=== PATIENT | male | born 1970 | race Caucasian/White ===

== ENCOUNTER 2017-03-15 17:44 | Emergency (ER) | payer OTHER, BC ==
[~2017-03-15] VITALS: Ht 182.9 cm; Wt 104.6 kg
[~2017-03-15 17:44] MED LIST: DOXYCYCLINE HY100 MG PO; MULTI-VITAMIN1 EAC4 PO; TRIGENTA PO
[2017-03-15] MEDS ORDERED: PERCOCET 5/31 TABLET PO (21:44)
[2017-03-15 21:51] VITALS: BP 116/79
== END 2017-03-15 21:52 | disposition home or self-care (01) ==
LOC: EME 17:44
DX: S20.219A Contusion of unspecified front wall of thorax, initial encounter (principal); S16.1XXA Strain of muscle, fascia and tendon at neck level, initial encounter; M54.9 Dorsalgia, unspecified; M25.511 Pain in right shoulder; V53.5XXA Driver of pick-up truck or van injured in collision with car, pick-up truck or van in traffic accident, initial encounter; E11.9 Type 2 diabetes mellitus without complications
CPT/HCPCS: 71101; 72040; 72070; 73030; 99281; 99283

== ENCOUNTER 2017-07-19 11:49 | Emergency (ER) | payer OTHER, BC ==
[~2017-07-19] VITALS: Ht 182.9 cm; Wt 103.8 kg
[~2017-07-19 11:49] MED LIST changes: +PERCOCET 5/31 TABLET PO
[2017-07-19] MEDS ORDERED: PREDNISONE50 MG PO (15:09)
[2017-07-19] MEDS ORDERED: NORCO 5/3251 TABLET PO (15:09)
[2017-07-19 15:21] VITALS: BP 142/71
== END 2017-07-19 15:22 | disposition home or self-care (01) ==
LOC: EME 11:49
DX: R07.81 Pleurodynia (principal); M54.2 Cervicalgia; R20.0 Anesthesia of skin; M79.642 Pain in left hand; M79.641 Pain in right hand; S30.1XXA Contusion of abdominal wall, initial encounter; Z88.1 Allergy status to other antibiotic agents
CPT/HCPCS: 71020; 72050; 93005; 99281; 99285; J1885

== ENCOUNTER 2017-09-11 13:33 | Emergency (ER) | payer OTHER, BC ==
[~2017-09-11] VITALS: Ht 182.9 cm; Wt 106.8 kg
[~2017-09-11 13:33] MED LIST changes: +NORCO 5/3251 TABLET PO; +PREDNISONE50 MG PO
[2017-09-11 14:25] LABS: HEMOGLOBIN 16.9 G/DL (12.5-16.6); MCH 29.4 PG (29.0-34.0); MCHC 34.5 G/DL (30.0-36.0); MCV 85.2 FL (86-99); PLATELET COUNT 265 K/uL (156-360); RBC DIS.WIDTH-CV 12.2 % (11.8-14.6); RBC DIS.WIDTH-SD 37.2 % (39-53); RED BLOOD COUNT 5.75 M/uL (4.00-5.50); WHITE BLOOD COUNT 10.1 K/uL (4.1-10.2)
[2017-09-11 14:38] LABS: ALBUMIN 4.3 g/dL (3.2-4.8); CHLORIDE 108 mEq/L (99-109); POTASSIUM 4.4 mEq/L (3.7-5.4); SODIUM 140 mEq/L (136-147)
[2017-09-11 14:40] LABS: GLUCOSE 190 mg/dL (70-99); TOTAL PROTEIN 7.1 g/dL (6.4-8.3)
[2017-09-11 14:42] LABS: TOTAL BILIRUBIN 0.7 mg/dL (0.0-1.0)
[2017-09-11 14:44] LABS: ALKALINE PHOSPHATASE 104 IU/L (3-129); GFR ESTIMATE (CALCULATED) > 59 mL/min/ (58.99-99999)
[2017-09-11 14:45] LABS: UREA NITROGEN (BUN) 13 mg/dL (9-23)
[2017-09-11 14:46] LABS: AST (GOT) 28 IU/L (2-34)
[2017-09-11 14:47] LABS: ALT (GPT) 33 IU/L (3-49); LIPASE 53 U/L (1.0-51.0)
[2017-09-11] MEDS ORDERED: PEPCID20 MG PO (16:09)
[2017-09-11] MEDS ORDERED: ZOFRAN4 MG PO (16:09)
[2017-09-11 17:25] VITALS: BP 104/63
== END 2017-09-11 17:27 | disposition home or self-care (01) ==
LOC: EME 13:33
PROVIDERS: Physician Assistant
DX: K21.9 Gastro-esophageal reflux disease without esophagitis (principal); E11.9 Type 2 diabetes mellitus without complications; Z98.84 Bariatric surgery status; Z98.1 Arthrodesis status; Z88.5 Allergy status to narcotic agent; Z88.1 Allergy status to other antibiotic agents
CPT/HCPCS: 74177; 80053; 83690; 85027; 99281; 99284; C9113; J2405

== ENCOUNTER 2018-01-27 04:59 | Emergency (ER) | payer BC ==
[~2018-01-27] VITALS: Ht 182.9 cm; Wt 99.6 kg
[~2018-01-27 04:59] MED LIST changes: +PEPCID20 MG PO; +ZOFRAN4 MG PO
[2018-01-27 05:37] LABS: HEMATOCRIT 50.4 % (38.0-50.0); HEMOGLOBIN 16.8 G/DL (12.5-16.6); MCH 27.6 PG (29.0-34.0); MCHC 33.3 G/DL (30.0-36.0); MCV 82.9 FL (86-99); PLATELET COUNT 265 K/uL (156-360); RBC DIS.WIDTH-CV 14.8 % (11.8-14.6); RED BLOOD COUNT 6.08 M/uL (4.00-5.50); WHITE BLOOD COUNT 11.8 K/uL (4.1-10.2)
[2018-01-27 05:38] LABS: CHLORIDE 105 mEq/L (99-109); SODIUM 140 mEq/L (136-147)
[2018-01-27 05:39] LABS: GLUCOSE 245 mg/dL (70-99)
[2018-01-27 05:43] LABS: CREATININE 1.1 mg/dL (0.6-1.3); GFR ESTIMATE (CALCULATED) > 59 mL/min/ (58.99-99999)
[2018-01-27 05:44] LABS: UREA NITROGEN (BUN) 11 mg/dL (9-23)
[2018-01-27] MEDS ORDERED: PROVENTIL HFA6.7 GM IH (06:19)
[2018-01-27] MEDS ORDERED: LEVAQUIN750 MG PO (06:19)
[2018-01-27] MEDS ORDERED: CHERATUSSIN AC473 ML PO (06:19)
[2018-01-27] MEDS ORDERED: SUDAFED PE PRE1 EACH PO (06:19)
[2018-01-27 06:36] VITALS: BP 135/83
== END 2018-01-27 06:37 | disposition home or self-care (01) ==
LOC: EME 04:59
DX: J20.9 Acute bronchitis, unspecified (principal); J01.90 Acute sinusitis, unspecified; E11.65 Type 2 diabetes mellitus with hyperglycemia; Z79.84 Long term (current) use of oral hypoglycemic drugs; E86.0 Dehydration; Z87.19 Personal history of other diseases of the digestive system; Z98.1 Arthrodesis status; Z88.5 Allergy status to narcotic agent; Z88.1 Allergy status to other antibiotic agents
CPT/HCPCS: 71046; 80048; 85027; 94640; 99281; 99285

== ENCOUNTER → 2018-02-04 | Outpatient (CLI) | payer BC ==
[~2018-02-04] MED LIST changes: +CHERATUSSIN AC473 ML PO; +LEVAQUIN750 MG PO; +PROVENTIL HFA6.7 GM IH; +SUDAFED PE PRE1 EACH PO
== END | disposition home or self-care (01) ==
LOC: NUC 08:13
DX: K21.9 Gastro-esophageal reflux disease without esophagitis (principal)
CPT/HCPCS: 78264; A9541

== ENCOUNTER → 2018-02-23 | Outpatient (CLI) | payer BC | END | disposition home or self-care (01) | LOC: NUC 02-16 07:30 | DX: K21.9 Gastro-esophageal reflux disease without esophagitis (principal) | CPT/HCPCS: 78264; A9541 ==

== ENCOUNTER → 2018-03-12 | Outpatient (CLI) | payer BC | END | disposition home or self-care (01) | LOC: CDC 14:06 | DX: Z01.810 Encounter for preprocedural cardiovascular examination (principal); K21.0 Gastro-esophageal reflux disease with esophagitis; I45.2 Bifascicular block | CPT/HCPCS: 93000 ==